=== PATIENT | male | born 1975 | race Caucasian/White ===

== ENCOUNTER 2016-08-03 19:33 | Emergency (ER) | payer OTHER ==
--- NOTE | 2016-08-03 19:47 | ER Document Report ---
ED Medical Screen (RME) - General Chief Complaint: Back Pain Stated Complaint: FLANK PAIN Mode of Arrival: Ambulatory Information source: Patient Notes: Patient presents to the emergency department with left posterior chest pain. Reports it hurts with expiration. Reports it feels the same as when he had PE in November. Reports he was on [id number]- for 6 months and recently taken off 2 months ago. Denies trauma denies smoker. No recent long trips. I have greeted and performed a rapid initial assessment of this patient. A comprehensive ED assessment and evaluation of the patient, analysis of test results and completion of the medical decision making process will be conducted by additional ED providers. TRAVEL OUTSIDE OF THE [place] IN LAST 30 DAYS: No - Related Data Allergies/Adverse Reactions: No Known Allergies Allergy (Verified 08/25/14 09:43) Past Medical History - Past Medical History Cardiac Medical History: Reports: Hx Hypertension Denies: Hx Coronary Artery Disease, Hx Heart Attack Pulmonary Medical History: Denies: Hx Asthma, Hx Bronchitis, Hx COPD, Hx Pneumonia Neurological Medical History: Denies: Hx Cerebrovascular Accident, Hx Seizures Musculoskeltal Medical History: Reports Hx Arthritis - hips, lower back Past Surgical History: Reports: Hx Testicular Surgery - vasectomy - Immunizations Hx Diphtheria, Pertussis, Tetanus Vaccination: Yes
[2016-08-03 20:02] LABS: ABSOLUTE BASOPHILS # (AUTO) 0.1 10^3/uL (0.0-0.2); ABSOLUTE EOSINOPHILS # (AUTO) 0.3 10^3/uL (0.0-0.6); ABSOLUTE LYMPHOCYTES (AUTO) 3.8 10^3/uL (0.5-4.7); ABSOLUTE MONOCYTES (AUTO) 0.7 10^3/uL (0.1-1.4); ABSOLUTE NEUT (AUTO) 6.9 10^3/uL (1.7-8.2); BASOPHILS % (AUTO) 0.5 % (0-2); EOSINOPHILS % (AUTO) 2.8 % (0-6); HEMATOCRIT 49.2 % (37.9-51.0); HEMOGLOBIN 16.7 g/dL (13.5-17.0); HGB HCT DIFFERENCE 0.9; MEAN CORPUSCULAR HEMOGLOBIN 29.1 pg (27.0-33.4); MEAN CORPUSCULAR HGB CONC 33.9 g/dL (32.0-36.0); MEAN CORPUSCULAR VOLUME 86 fl (80-97); MONOCYTES % (AUTO) 5.6 % (3-13); RED BLOOD COUNT 5.73 10^6/uL (4.35-5.55); RED CELL DISTRIBUTION WIDTH 13.3 % (11.5-14.0); SEGMENTED NEUTROPHILS % (AUTO) 59.1 % (42-78); WHITE BLOOD COUNT 11.7 10^3/uL (4.0-10.5)
[2016-08-03 20:08] LABS: PROTHROMBIN TIME 12.2 SEC (11.4-15.4)
[2016-08-03 20:11] LABS: D-DIMER 0.36 ug/mL (0.00-0.50)
[2016-08-03 20:22] LABS: ALANINE AMINOTRANSFERASE 44 U/L (21-72); ALBUMIN 4.7 g/dL (3.5-5.0); ALKALINE PHOSPHATASE 83 U/L (38-126); ANION GAP 12 (5-19); ASPARTATE AMINO TRANSFERASE 42 U/L (17-59); BILIRUBIN,DIRECT 0.2 mg/dL (0.0-0.4); BILIRUBIN,TOTAL 0.4 mg/dL (0.2-1.3); BLOOD UREA NITROGEN 15 mg/dL (7-20); CALCIUM 10.4 mg/dL (8.4-10.2); CARBON DIOXIDE 29 mmol/L (22-30); CHLORIDE 102 mmol/L (98-107); CREATININE RESULT 1.05 mg/dL (0.52-1.25); GLUCOSE 109 mg/dL (75-110); POTASSIUM 4.3 mmol/L (3.6-5.0); SODIUM 143.3 mmol/L (137-145); TOTAL PROTEIN 7.9 g/dL (6.3-8.2)
[2016-08-03 23:26] LABS: APPEARANCE,URINE CLEAR; BILIRUBIN,URINE NEGATIVE (NEGATIVE); GLUCOSE, URINE NEGATIVE (NEGATIVE); KETONES,URINE NEGATIVE (NEGATIVE); LEUKOCYTE ESTERASE,URINE NEGATIVE (NEGATIVE); NITRITE,URINE NEGATIVE (NEGATIVE); PROTEIN,URINE NEGATIVE (NEGATIVE); URINE SPECIFIC GRAVITY 1.049; UROBILINOGEN,URINE NEGATIVE mg/dL (<2.0)
[2016-08-03] MEDS ORDERED: HYDROCODONE/ACETAMINOPHEN 5-325 MG 6 TAB/DSPK PO PRN (23:45)
--- NOTE | 2016-08-03 23:46 | ER Document Report ---
ED General - General Chief Complaint: Back Pain Stated Complaint: FLANK PAIN Time seen by provider: 23:45 Mode of Arrival: Ambulatory Information source: Patient TRAVEL OUTSIDE OF THE [place] IN LAST 30 DAYS: No - HPI Patient complains to provider of: left thoracic back pain Onset: This morning Onset/Duration: Gradual Quality of pain: Achy Severity: Moderate Pain Level: 3 Associated symptoms: None Exacerbated by: Deep breathing Relieved by: Denies Similar symptoms previously: Yes Recently seen / treated by doctor: No Notes: Patient is a 41-year-old male who presents to the emergency room complaining of left posterior mid thoracic back pain that started earlier today, he reports symptoms are worse when he takes a deep breath and reminiscent of when he had a pulmonary embolism in the past, he was on Zarelto for approximately 6 months, and taken off of it 2 months ago, he is unsure what caused his pulmonary embolism in the past, he denies any injury, no heavy lifting, no recent long travel, no calf pain or tenderness, no shortness of breath and no chest pain - Related Data Allergies/Adverse Reactions: No Known Allergies Allergy (Verified 08/25/14 09:43) Past Medical History - General Information source: Patient - Social History Smoking Status: Never Smoker Chew tobacco use (# tins/day): No Frequency of alcohol use: None Drug Abuse: None Family History: Reviewed & Not Pertinent Patient has suicidal ideation: No Patient has homicidal ideation: No - Past Medical History Cardiac Medical History: Reports: Hx Hypertension Denies: Hx Coronary Artery Disease, Hx Heart Attack Pulmonary Medical History: Denies: Hx Asthma, Hx Bronchitis, Hx COPD, Hx Pneumonia Neurological Medical History: Denies: Hx Cerebrovascular Accident, Hx Seizures Renal/ Medical History: Denies: Hx Peritoneal Dialysis Musculoskeltal Medical History: Reports Hx Arthritis - hips, lower back Past Surgical History: Reports: Hx Testicular Surgery - vasectomy - Immunizations Hx Diphtheria, Pertussis, Tetanus Vaccination: Yes Review of Systems - Review of Systems Constitutional: No symptoms reported EENT: No symptoms reported Cardiovascular: No symptoms reported Respiratory: See HPI Gastrointestinal: No symptoms reported Genitourinary: No symptoms reported Male Genitourinary: No symptoms reported Musculoskeletal: See HPI Skin: See HPI Hematologic/Lymphatic: No symptoms reported Neurological/Psychological: No symptoms reported -: Yes All other systems reviewed and negative Physical Exam - Vital signs Vitals: Temp Pulse Resp BP Pulse Ox 98.5 F 105 H 18 146/92 H 95 08/03/16 19:41 08/03/16 19:41 08/03/16 19:41 08/03/16 19:41 08/03/16 19:41 Interpretation: Normal - General General appearance: Appears well, Alert In distress: None - HEENT Head: Normocephalic, Atraumatic Eyes: Normal Conjunctiva: Normal Extraocular movements intact: Yes Eyelashes: Normal Pupils: PERRL - Respiratory Respiratory status: No respiratory distress Chest status: Nontender Breath sounds: Normal Chest palpation: Normal - Cardiovascular Rhythm: Regular Heart sounds: Normal auscultation Murmur: No - Abdominal Inspection: Normal Distension: No distension Bowel sounds: Normal Tenderness: Nontender Organomegaly: No organomegaly - Back Back: Normal, Nontender - Extremities General upper extremity: Normal inspection, Nontender, Normal color, Normal ROM , Normal temperature General lower extremity: Normal inspection, Nontender, Normal color, Normal ROM , Normal temperature, Normal weight bearing. No: Leo's sign - Neurological Neuro grossly intact: Yes Cognition: Normal Orientation: AAOx4 [place] Coma Scale Eye Opening: Spontaneous Pearl Coma Scale Verbal: Oriented [place] Coma Scale Motor: Obeys Commands [place] Coma Scale Total: 15 Speech: Normal Motor strength normal: LUE, RUE, LLE, RLE Sensory: Normal - Psychological Associated symptoms: Normal affect, Normal mood - Skin Skin Temperature: Warm Skin Moisture: Dry Skin Color: Normal Course - Re-evaluation Re-evalutation: 08/04/16 03:35 Lab and imaging findings discussed with patient at bedside which are unremarkable, CTA shows no evidence of a PE, patient was provided with a take- home pack of pain medication and advised to follow-up with his primary care provider in one to 2 days or return if symptoms worsen, patient acknowledges understanding and agreement with this plan - Vital Signs Vital signs: Temp Pulse Resp BP Pulse Ox 97.8 F 70 16 115/74 96 08/04/16 00:00 08/04/16 00:00 08/04/16 00:00 08/04/16 00:00 08/04/16 00:00 - Laboratory Result Diagrams: 08/03/16 19:45 08/03/16 19:45 Laboratory results interpreted by me: 08/03/16 08/03/16 19:45 19:45 WBC 11.7 H RBC 5.73 H Calcium 10.4 H - Diagnostic Test Radiology reviewed: Image reviewed, Reports reviewed - EKG Interpretation by Me EKG shows normal: Sinus rhythm Rate: Normal Rhythm: NSR Discharge - Discharge Clinical Impression: Rib pain Condition: Stable Disposition: HOME, SELF-CARE Instructions: Anti-Inflammatory Medication ([facility]), Oral Narcotic Medication ([facility] ), Muscle Strain ([facility]) Additional Instructions: Follow up with your primary care provider in one to 2 days. Return to the emergency room immediately if symptoms worsen or any additional concerns. Referrals: ALMAZ LOVELL MD [Primary Care Provider] - Follow up as needed
[2016-08-04 00:02] VITALS: BP 115/74
--- NOTE | 2016-08-04 08:52 | EKG REPORT ---
SEVERITY:- ABNORMAL ECG - SINUS RHYTHM NONSPECIFIC T ABNORMALITIES, INFERIOR LEADS : Confirmed by: Miquel Spence MD 04-Aug-2016 08:51:34
== END 2016-08-04 | disposition home or self-care (01) ==
LOC: ER 19:33
DX: R07.81 Pleurodynia (principal); M54.9 Dorsalgia, unspecified; I10 Essential (primary) hypertension; Z98.52 Vasectomy status
CPT/HCPCS: 36415; 71275; 80053; 81001; 85025; 85379; 85610; 93005; 93010; 99284

== ENCOUNTER 2016-09-23 08:15 | Emergency (ER) | payer OTHER ==
--- NOTE | 2016-09-23 08:35 | EKG REPORT ---
SEVERITY:- BORDERLINE ECG - SINUS RHYTHM BORDERLINE T ABNORMALITIES, INFERIOR LEADS : Confirmed by: Sunny Tripp 23-Sep-2016 08:34:59
--- NOTE | 2016-09-23 08:54 | ER Document Report ---
ED Cardiac - General Mode of Arrival: Ambulatory Information source: Patient TRAVEL OUTSIDE OF THE [place] IN LAST 30 DAYS: No - HPI Patient complains to provider of: Chest pain Associated symptoms: Other - See above - General Chief Complaint: Chest Pain Stated Complaint: CHEST PAIN Time Seen by Provider: 09/23/16 08:35 Notes: Patient is a 41-year-old male who presents to the emergency department complaining of left sided chest pain onset 2 days ago. Patient reports pain is very similar to a blood clot had in his right lung last year. Patient reports the pain is exacerbated by breathing and not by movement and that it radiates into his left shoulder. Patient was here last month with similar complaints and was sent home and told it was muscle related. Patient did have a workup and was tested for blood clotting disorders told he had none. Patient has not taken any Tylenol or Motrin for today's pain. Patient denies cough, fever, and chills. (STEPHANIE HELTON) - Related Data Allergies/Adverse Reactions: No Known Allergies Allergy (Verified 09/23/16 08:18) Past Medical History - General Information source: Patient - Social History Smoking Status: Unknown if Ever Smoked Family History: Reviewed & Not Pertinent Patient has suicidal ideation: No Patient has homicidal ideation: No - Past Medical History Cardiac Medical History: Reports: Hx Hypertension Musculoskeltal Medical History: Reports Hx Arthritis - hips, lower back Past Surgical History: Reports: Hx Testicular Surgery - vasectomy - Immunizations Hx Diphtheria, Pertussis, Tetanus Vaccination: Yes Review of Systems - Review of Systems Constitutional: denies: Chills, Fever EENT: No symptoms reported Cardiovascular: See HPI, Chest pain Respiratory: denies: Cough Gastrointestinal: No symptoms reported Genitourinary: No symptoms reported Male Genitourinary: No symptoms reported Musculoskeletal: No symptoms reported Skin: No symptoms reported Hematologic/Lymphatic: No symptoms reported Neurological/Psychological: No symptoms reported -: Yes All other systems reviewed and negative Physical Exam - Vital signs Interpretation: Normal - General General appearance: Appears well, Alert - HEENT Head: Normocephalic, Atraumatic - Respiratory Respiratory status: No respiratory distress Chest status: Nontender Breath sounds: Normal Chest palpation: Normal - Cardiovascular Rhythm: Regular Heart sounds: Normal auscultation Murmur: No - Abdominal Inspection: Normal Distension: No distension Bowel sounds: Normal Tenderness: Nontender Organomegaly: No organomegaly - Extremities General upper extremity: Normal inspection General lower extremity: Normal inspection - Neurological Neuro grossly intact: Yes Cognition: Normal Orientation: AAOx4 [place] Coma Scale Eye Opening: Spontaneous Pearl Coma Scale Verbal: Oriented [place] Coma Scale Motor: Obeys Commands [place] Coma Scale Total: 15 Speech: Normal - Psychological Associated symptoms: Normal affect, Normal mood - Skin Skin Temperature: Warm Skin Moisture: Dry Skin Color: Normal Course - Re-evaluation Re-evalutation: 09/23/16 10:39 Patient presents emergency, chief plain pleuritic chest pain for the past 2-3 days he had a history of a pulmonary embolism one or 2 years ago was on Cymbalta for short period time followed up with hematology and they have no idea why he had it today did all outpatient testing to see if he had blood clotting disorder which she did not. He says it hurts when he takes a deep breath. He was here 325 with the same complaint PE study at that time was negative. He denies any known injury or muscular skeletal injury no fevers chills or cough well-appearing nontoxic no acute distress and is not tachypnea or tachycardic. Chest x-ray showing pneumonia. Going to go ahead and treat him with Augmentin. Close primary care physician d-dimer is negative and discussed reasons for ED return sooner (ZULY HAWLEY) - Vital Signs Vital signs: Temp Pulse Resp BP Pulse Ox 97.8 F 68 18 123/77 95 09/23/16 10:51 09/23/16 10:51 09/23/16 10:51 09/23/16 10:51 09/23/16 10:51 Discharge - Discharge Clinical Impression: acute pneumonia, pleuritic chest pain Condition: Stable Disposition: HOME, SELF-CARE Additional Instructions: Pneumonia Your examination indicates that you have pneumonia. This is an infection of the lung tissue, usually caused by bacteria or a virus. Symptoms include cough, fever, shaking chills, chest pain, shortness of breath, and coughing up bloody sputum. Treatment for bacterial pneumonia includes rest, antibiotics for 10 to 14 days, increasing your clear liquid intake, a cool mist humidifier at your bedside, and fever medication. Often, a repeat chest X-ray is performed in a few weeks--even if you feel better--to ascertain whether the infection has completely resolved and no underlying lung problem is present. You should call the physician if you develop persistent vomiting, high fever that does not respond to fever medication, increasing shortness of breath , confusion, or lethargy. Also, failure to improve within two to three days is an indication for re-examination. Chest Pain of Unclear Cause The exact cause of your chest pain isn't clear. Fortunately, there is no evidence of a dangerous medical condition. Further testing may be required to find the source of the pain. Most often, we find that this pain is coming from the chest wall -- the muscles or rib joints in the chest. But chest pain can come from the lung and lung lining, the esophagus, the heart valves or heart lining, and even the stomach or gallbladder. Rest. Eat lightly until the pain is gone. We may prescribe medicine for pain and inflammation. You should call the physician immediately if the pain radiates to the shoulder, jaw or arms; if you start to run a fever or develop a cough; or if you develop shortness of breath, or other new or alarming symptoms. Prescriptions: Amox Tr/Potassium Clavulanate [Augmentin 875-125 Tablet] 1 tab PO BID 10 Days Referrals: ALMAZ LOVELL MD [Primary Care Provider] - Follow up as needed Scribe Attestation: 09/23/16 10:39 I personally performed the services described in the documentation reviewed the documentation recorded by my scribe in my presence and it accurately and completely records my words and actions (ZULY HAWLEY) Scribe Documentation - Scribe Written by Denia:: denia Abernathy, 09/23/16, 1001 acting as scribe for :: Erik
[2016-09-23] MEDS ORDERED: AMOXICILLIN TR/POT CLAVULANATE 500-125 MG TAB PO ONE (10:38)
[2016-09-23 10:53] VITALS: BP 123/77
== END 2016-09-23 11:00 | disposition home or self-care (01) ==
LOC: ER 08:15
DX: J18.9 Pneumonia, unspecified organism (principal); R07.81 Pleurodynia; I10 Essential (primary) hypertension; Z98.52 Vasectomy status
CPT/HCPCS: 36415; 71020; 83690; 85379; 93005; 93010; 99285

== ENCOUNTER → 2016-10-29 | Outpatient (CLI) | payer OTHER ==
--- NOTE | 2016-10-29 12:09 | RADIOLOGY REPORT (SQ) ---
EXAM DESCRIPTION: CHEST PA/LATERAL COMPLETED DATE/TIME: 10/29/2016 11:00 am REASON FOR STUDY: CHEST PAIN ON BREATHING COMPARISON: 09/23/2016 EXAM PARAMETERS: NUMBER OF VIEWS: two views TECHNIQUE: Digital Frontal and Lateral radiographic views of the chest acquired. RADIATION DOSE: NA LIMITATIONS: none FINDINGS: LUNGS AND PLEURA: No opacities, masses or pneumothorax. No pleural effusion. MEDIASTINUM AND HILAR STRUCTURES: No masses or contour abnormalities. HEART AND VASCULAR STRUCTURES: Heart normal size. No evidence for failure. BONES: No acute findings. HARDWARE: None in the chest. OTHER: No other significant finding. IMPRESSION: NO SIGNIFICANT RADIOGRAPHIC FINDING IN THE CHEST. TECHNICAL DOCUMENTATION: JOB ID: [id number] [employer]- All Rights Reserved
== END ==
LOC: OD 10:21
PROVIDERS: ATTEND Physician Assistant
DX: R07.1 Chest pain on breathing (principal)
CPT/HCPCS: 36415; 71020; 85379

== ENCOUNTER → 2016-11-07 | Outpatient (CLI) | payer OTHER ==
--- NOTE | 2016-11-07 19:17 | XCELERA REPORT ---
[address] [address] Transthoracic Echocardiogram Report Name: JUAN C LEVY Age: 41 yrs Gender: Male : 1975 Patient Status: Outpatient Patient Location: Study Date: 11/07/2016 08:02 AM Height: 73 in Weight: 210 lb BSA: 2.2 m2 Procedure: A complete two-dimensional transthoracic echocardiogram was performed (2D, M-mode, spectral and color flow Doppler). The study was technically difficult with many images being suboptimal in quality. Reason For Study: CP Ordering Physician: SURESH KIRK Performed By: Kady Yadav Interpretation Summary Left ventricular systolic function is low normal. Doppler measurements suggest pseudonormalized left ventricular relaxation, which is associated with grade II/IV or mild to moderate diastolic dysfunction There is mild concentric left ventricular hypertrophy. The left ventricle is grossly normal size. Not all wall segments were well visualized. Wall motion cannot be accurately commented on, but no definite regional wall motion abnormalities noted. The right ventricular systolic function is normal. The left atrial size is normal. The right atrium is normal in size There is a trace amount of mitral regurgitation There is no mitral valve stenosis. No aortic regurgitation is present. There is no aortic valve stenosis There is a trace or physiologic amount of tricuspid regurgitation Tricuspid regurgitation jet envelope not well defined to measure RV systolic pressure accurately. The aortic root is not well visualized. The inferior vena cava appeared normal and decreased > 50% with respiration (RAP 5-10 mmHg) There is no pericardial effusion. MMode/2D Measurements \T\ Calculations RVDd: 3.8 cm LVIDd: 4.4 cm FS: 40.3 % Ao root diam: 3.2 cm IVSd: 1.2 cm LVIDs: 2.7 cm EDV(Teich): 89.6 ml LVPWd: 1.0 cm ESV(Teich): 25.8 ml Ao root area: 7.8 cm2 EF(Teich): 71.2 % LVOT diam: 2.6 cm LVOT area: 5.2 cm2 Doppler Measurements \T\ Calculations Ao V2 max: LV V1 max PG: PA V2 max: TR max kenia: 97.9 cm/sec 2.1 mmHg 61.1 cm/sec 219.4 cm/sec Ao max PG: LV V1 max: PA max PG: TR max P.3 mmHg 3.8 mmHg 72.0 cm/sec 1.5 mmHg SONIA(V,D): 3.8 cm2 Left Ventricle The left ventricle is grossly normal size. There is mild concentric left ventricular hypertrophy. Left ventricular systolic function is low normal. Doppler measurements suggest pseudonormalized left ventricular relaxation, which is associated with grade II/IV or mild to moderate diastolic dysfunction. Wall motion cannot be accurately commented on, but no definite regional wall motion abnormalities noted. Not all wall segments were well visualized. Right Ventricle The right ventricle is grossly normal size. There is normal right ventricular wall thickness. The right ventricular systolic function is normal. Atria The right atrium is normal in size. The left atrial size is normal. Interarterial septum not well visualized and not well dopplered. Cannot comment on ASD/PFO presence. Mitral Valve The mitral valve is grossly normal. There is no mitral valve stenosis. There is a trace amount of mitral regurgitation. Aortic Valve The aortic valve is grossly normal. There is no aortic valve stenosis. No aortic regurgitation is present. Tricuspid Valve The tricuspid valve is not well visualized, but is grossly normal. There is no tricuspid stenosis. There is a trace or physiologic amount of tricuspid regurgitation. Tricuspid regurgitation jet envelope not well defined to measure RV systolic pressure accurately. Pulmonic Valve The pulmonic valve is not well visualized. Great Vessels The aortic root is not well visualized. The inferior vena cava appeared normal and decreased > 50% with respiration (RAP 5-10 mmHg). Effusions There is no pericardial effusion. : SURESH KIRK > Sunny Tripp
== END ==
LOC: SP 07:27
PROVIDERS: ATTEND Physician Assistant
DX: R07.9 Chest pain, unspecified (principal)
CPT/HCPCS: 93306

== ENCOUNTER 2016-11-20 10:45 | Emergency (ER) | payer OTHER ==
[2016-11-20 10:52] VITALS: BP 129/86
[2016-11-20] MEDS ORDERED: RIVAROXABAN 15 MG TABLET PO ONE (12:12)
--- NOTE | 2016-11-20 12:12 | ER Document Report ---
ED Medical Screen (RME) - General Chief Complaint: Abnormal Lab Results Stated Complaint: SIDE PAIN Time Seen by Provider: 11/20/16 11:56 Mode of Arrival: Ambulatory Information source: Patient, [facility] Records TRAVEL OUTSIDE OF THE [place] IN LAST 30 DAYS: No - HPI Onset: Other - days Quality of pain: Dull Severity: Mild Associated Symptoms: None Exacerbated by: Denies Relieved by: Denies Notes: 11/20/16 12:08 Patient is a healthy 41-year-old male who states he was diagnosed with a pulmonary embolus approximately 1 year ago of unknown etiology. Patient states he did see hematology at that time and no specific etiology could be identified. Patient believes it was due to the fact that he works outdoors as a bilingual account manager and states he did some research on the Internet documenting pulmonary embolus and actually to exert himself heavily outdoors. Patient completed his Xarelto approximately 6 months ago and is doing well. Over the last several weeks patient has been seen by his primary care doctor and this emergency department for episodes of chest pain. Patient did have a CT of his chest done a few weeks ago which was negative also chest x-ray done which was negative. Patient then developed right-sided chest pain and was subsequently sent to the emergency department by his primary care provider today for a CT of his chest again. He was read out by the radiologist as minimal right lower lobe pulmonary embolus the patient was referred to the emergency department for further management and evaluation. Patient denies any shortness of breath. No fevers or chills. Patient is a non-smoker and otherwise has no other PE risk factors. - Related Data Allergies/Adverse Reactions: No Known Allergies Allergy (Verified 11/20/16 10:49) Past Medical History - General Information source: Patient, [facility] Records - Social History Chew tobacco use (# tins/day): No Frequency of alcohol use: None Drug Abuse: None - Past Medical History Cardiac Medical History: Reports: Hx Hypertension, Hx Pulmonary Embolism Denies: Hx Coronary Artery Disease, Hx Heart Attack Pulmonary Medical History: Denies: Hx Asthma, Hx Bronchitis, Hx COPD, Hx Pneumonia Neurological Medical History: Denies: Hx Cerebrovascular Accident, Hx Seizures Renal/ Medical History: Denies: Hx Peritoneal Dialysis Musculoskeltal Medical History: Reports Hx Arthritis - hips, lower back Past Surgical History: Reports: Hx Testicular Surgery - vasectomy - Immunizations Hx Diphtheria, Pertussis, Tetanus Vaccination: Yes Review of Systems - Review of Systems Cardiovascular: Chest pain -: Yes All other systems reviewed and negative Physical Exam - Vital signs Vitals: Temp Pulse Resp BP Pulse Ox 98.1 F 88 20 129/86 H 94 11/20/16 10:50 11/20/16 10:50 11/20/16 10:50 11/20/16 10:50 11/20/16 10:50 Interpretation: Normal - General General appearance: Appears well, Alert - HEENT Head: Normocephalic, Atraumatic Eyes: Normal Pupils: PERRL - Respiratory Respiratory status: No respiratory distress Chest status: Nontender Breath sounds: Normal Chest palpation: Normal - Cardiovascular Rhythm: Regular Heart sounds: Normal auscultation Murmur: No - Abdominal Inspection: Normal Distension: No distension Bowel sounds: Normal Tenderness: Nontender Organomegaly: No organomegaly - Extremities General upper extremity: Normal inspection, Nontender, Normal color, Normal ROM , Normal temperature General lower extremity: Normal inspection, Nontender, Normal color, Normal ROM , Normal temperature, Normal weight bearing. No: Leo's sign - Neurological Neuro grossly intact: Yes Cognition: Normal Orientation: AAOx4 Pearl Coma Scale Eye Opening: Spontaneous Pearl Coma Scale Verbal: Oriented Pearl Coma Scale Motor: Obeys Commands Pearl Coma Scale Total: 15 Speech: Normal Motor strength normal: LUE, RUE, LLE, RLE Sensory: Normal Course - Re-evaluation Re-evalutation: 11/20/16 12:06 According to the Pulmonary Embolism Severity Index (PESI), pt scores in the very low risk group (51 points). Will start on outpatient Xarelto treatment and patient will follow up with his PMD. Pt is not short of breath and is otherwise comfortable. He is scheduled for treadmill PFT testing. 11/20/16 12:11 11/20/16 12:13 - Vital Signs Vital signs: Temp Pulse Resp BP Pulse Ox 98.1 F 88 20 129/86 H 94 11/20/16 10:50 11/20/16 10:50 11/20/16 10:50 11/20/16 10:50 11/20/16 10:50 - Diagnostic Test Radiology reviewed: Reports reviewed Radiology results interpreted by me: 11/20/16 12:10 per radiology, mild right pulmonary embolus Doctor's Discharge - Discharge Clinical Impression: Pulmonary embolus Condition: Good Disposition: HOME, SELF-CARE Instructions: Chest Wall Pain ([facility]) Additional Instructions: Your CTA chest demonstrates a very small right lower lobe pulmonary embolus. You have been given a starting dose of Xarelto in the emergency department. You have been given a prescription for a Xarelto starter pack. You will need to follow-up with your primary care provider for further management. Return to the emergency department if worse or for any other problems. Prescriptions: Rivaroxaban [Xarelto] 1 each PO ASDIR #1 tab.ds.pk
== END 2016-11-20 12:25 | disposition home or self-care (01) ==
LOC: ER 10:45
DX: I26.99 Other pulmonary embolism without acute cor pulmonale (principal); I10 Essential (primary) hypertension; R07.9 Chest pain, unspecified
CPT/HCPCS: 71275; 99283

== ENCOUNTER → 2016-11-20 | Outpatient (CLI) | payer OTHER ==
--- NOTE | 2016-11-20 09:43 | RADIOLOGY REPORT (SQ) ---
EXAM DESCRIPTION: CTA CHEST COMPLETED DATE/TIME: 11/20/2016 9:05 am REASON FOR STUDY: CHEST PAIN R07.9 CHEST PAIN, UNSPECIFIED COMPARISON: None. TECHNIQUE: CT scan of the chest performed using helical scanning technique with dynamic intravenous contrast injection. Images reviewed with lung, soft tissue and bone windows. Reconstructed coronal and sagittal MPR images reviewed. Additional 3 dimensional post-processing performed to develop Maximal Intensity Projection images (NM P). All images stored on PACS. All CT scanners at this facility use dose modulation, iterative reconstruction, and/or weight based d osing when appropriate to reduce radiation dose to as low as reasonably achievable (ALARA). [facility]: Dose Right [facility]: CareDose [facility]: Dose Right [facility]: Teradose 4D [facility]: [email or web address] CONTRAST TYPE AND DOSE: contrast/concentration: Isovue 370.00 mg/ml; Total Contrast Delivered: 73.0 ml; Total Saline Delivered: 110.1 ml RENAL FUNCTION: None required. The patient is less than 50 years old. RADIATION DOSE: Up-to-date CT equipment and radiation dose reduction techniques were employed. CTDIv ol: 15.0 - 15.5 mGy. DLP: 583 mGy-cm. . LIMITATIONS: None. FINDINGS: LUNGS AND PLEURA: Mild dependent subsegmental atelectasis in the lower lobes. 1.7 cm slig htly nodular appearing area of density abutting the right posterior pleura. Lungs otherwise clear. No pleural effusion or calcification. AORTA AND GREAT VESSELS: Ectatic ascending aorta, 3.9 cm maximally. Due to phase of contrast, the ao rta itself is not well enhanced and therefore comment on dissection and great vessel patency is not p ossible. HEART: No pericardial effusion. PULMONARY ARTERIES: Main pulmonary arteries are clear. Minimal filling defects in peripheral right l ower lobe branches consistent with pulmonary embolus. HILAR AND MEDIASTINAL STRUCTURES: No identified masses or abnormal nodes. HARDWARE: None in the chest. UPPER ABDOMEN: No significant findings. Limited exam. THYROID AND OTHER SOFT TISSUES: No masses. No adenopathy. BONES: No acute or significant finding. 3D MIPS: Confirm above findings. OTHER: No other significant finding. IMPRESSION: 1. Minimal right lower lobe pulmonary embolus. Mild right lower lobe focal pleural bas ed opacity may represent a small area of infarct or atelectasis. Pertinent findings on the imaging study reported to SURESH LENZ at09:36 on 11/20/2016. TECHNICAL DOCUMENTATION: JOB ID: [id number] Quality ID # [id number]: Final reports with documentation of one or more dose reduction techniques (e.g., Au tomated exposure control, adjustment of the mA and/or kV according to patient size, use of iterative reconstruction technique) 2010 [employer]- All Rights Reserved
== END ==
LOC: RAD 08:37
PROVIDERS: ATTEND Physician Assistant
DX: R07.9 Chest pain, unspecified (principal); I26.99 Other pulmonary embolism without acute cor pulmonale
CPT/HCPCS: 71275

== ENCOUNTER → 2017-03-31 | Outpatient (CLI) | payer OTHER ==
--- NOTE | 2017-04-01 11:16 | RADIOLOGY REPORT (SQ) ---
EXAM DESCRIPTION: U/S SCROTUM W/O DOPPLER COMPLETED DATE/TIME: 03/31/2017 6:24 pm REASON FOR STUDY: LEFT TESTICULAR PAIN N50.812 LEFT TESTICULAR PAIN COMPARISON: None. TECHNIQUE: Static and realtime napier scale imaging of the scrotum and testes. Selected color Doppler and spectral images recorded to document blood flow. LIMITATIONS: None. FINDINGS: RIGHT: TESTICLE: Normal size, 4.4 x 3.3 x 2.2 cm in size. Normal echotexture. Normal blood flow. No mass. EPIDIDYMIS: Normal size. There is ectasia of tubules in the right epididymal head, with a benign 4 m m epididymal cyst. HYDROCELE OR VARICOCELE: No. HERNIA OR EXTRA-TESTICULAR MASS: No. OTHER: No other significant finding. LEFT: TESTICLE: Normal size, 4.4 x 3.1 x 2.4 cm in size. Normal echotexture. Normal blood flow. No mass. EPIDIDYMIS: Epididymis is diffusely mildly enlarged. There is diffuse tubular ectasia in the right e pididymis, most pronounced at the epididymal tail. HYDROCELE OR VARICOCELE: There is a large left varicocele, which becomes more prominent on Valsalva HERNIA OR EXTRA-TESTICULAR MASS: No. OTHER: No other significant finding. IMPRESSION: No ultrasound evidence of testicular torsion Bilateral epididymal tubular ectasia, seen post vasectomy Large left varicocele COMMENT: [id number] TECHNICAL DOCUMENTATION: JOB ID: [id number] [employer]- All Rights Reserved
== END ==
LOC: RAD 17:02
PROVIDERS: ATTEND Physician Assistant
DX: N50.812 Left testicular pain (principal)
CPT/HCPCS: 76870

== ENCOUNTER 2018-08-17 05:57 | Emergency (ER) | payer OTHER ==
[2018-08-17] MEDS ORDERED: ONDANSETRON HCL INJ/PF 4 MG/2 ML SDV IV ONE (06:45)
[2018-08-17] MEDS ORDERED: MORPHINE SULFATE 10 MG/ML INJ IV ONE (06:45)
[2018-08-17] MEDS ORDERED: NORMAL SALINE 1000 ML 1,000 ML IV ONE (06:45)
--- NOTE | 2018-08-17 07:21 | RADIOLOGY REPORT (SQ) ---
Acute abdominal series on 08/17/2018 at 7:01 AM CLINICAL INDICATION: Lower abdominal pain, fever COMPARISON: Chest x-ray from 10/29/2016 FINDINGS: CHEST: The lungs are clear. Cardiac, hilar and mediastinal contours are within normal limits. Pulmonary vascularity is within normal limits. No bony abnormality is noted. ABDOMEN: There is no free air. Degenerative changes and mild levoscoliosis is noted in the lower lumbar spine. Bowel gas pattern is unremarkable. Calcifications in the right pelvis is consistent with phlebolith. No other abnormal calcification or mass effect is noted. IMPRESSION: 1. No acute cardiopulmonary disease. 2. Nonspecific abdomen.
[2018-08-17 07:32] LABS: ABSOLUTE BASOPHILS # (AUTO) 0.1 10^3/uL (0.0-0.2); ABSOLUTE EOSINOPHILS # (AUTO) 0.2 10^3/uL (0.0-0.6); ABSOLUTE LYMPHOCYTES (AUTO) 1.6 10^3/uL (0.5-4.7); ABSOLUTE MONOCYTES (AUTO) 1.1 10^3/uL (0.1-1.4); ABSOLUTE NEUT (AUTO) 8.9 10^3/uL (1.7-8.2); BASOPHILS % (AUTO) 0.4 % (0-2); EOSINOPHILS % (AUTO) 1.6 % (0-6); HEMATOCRIT 49.4 % (37.9-51.0); HEMOGLOBIN 17.2 g/dL (13.5-17.0); LYMPHOCYTES % (AUTO) 13.8 % (13-45); MEAN CORPUSCULAR HEMOGLOBIN 30.7 pg (27.0-33.4); MEAN CORPUSCULAR HGB CONC 34.7 g/dL (32.0-36.0); MEAN CORPUSCULAR VOLUME 89 fl (80-97); MONOCYTES % (AUTO) 9.1 % (3-13); PLATELET COUNT 249 10^3/uL (150-450); RED BLOOD COUNT 5.59 10^6/uL (4.35-5.55); RED CELL DISTRIBUTION WIDTH 14.3 % (11.5-14.0); SEGMENTED NEUTROPHILS % (AUTO) 75.1 % (42-78); TOTAL CELLS COUNTED % (AUTO) 100 %; WHITE BLOOD COUNT 11.8 10^3/uL (4.0-10.5)
[2018-08-17 07:46] LABS: ALANINE AMINOTRANSFERASE 26 U/L (21-72); ALBUMIN 4.4 g/dL (3.5-5.0); ALKALINE PHOSPHATASE 91 U/L (38-126); ANION GAP 12 (5-19); ASPARTATE AMINO TRANSFERASE 42 U/L (17-59); BILIRUBIN,DIRECT 0.3 mg/dL (0.0-0.4); BILIRUBIN,TOTAL 0.7 mg/dL (0.2-1.3); BLOOD UREA NITROGEN 13 mg/dL (7-20); CALCIUM 10.6 mg/dL (8.4-10.2); CARBON DIOXIDE 24 mmol/L (22-30); CHLORIDE 101 mmol/L (98-107); GLUCOSE 104 mg/dL (75-110); POTASSIUM 4.6 mmol/L (3.6-5.0); SODIUM 136.9 mmol/L (137-145); TOTAL PROTEIN 7.9 g/dL (6.3-8.2)
[2018-08-17 07:54] LABS: APPEARANCE,URINE SLIGHTLY-CLOUDY; BILIRUBIN,URINE NEGATIVE (NEGATIVE); COLOR,URINE YELLOW; GLUCOSE, URINE NEGATIVE (NEGATIVE); KETONES,URINE NEGATIVE (NEGATIVE); LEUKOCYTE ESTERASE,URINE NEGATIVE (NEGATIVE); NITRITE,URINE NEGATIVE (NEGATIVE); PROTEIN,URINE NEGATIVE (NEGATIVE)
[2018-08-17] MEDS ORDERED: CIPROFLOXACIN HCL 750 MG TABLET PO ONE (09:05)
[2018-08-17] MEDS ORDERED: METRONIDAZOLE 500 MG TABLET PO ONE (09:06)
--- NOTE | 2018-08-17 09:17 | RADIOLOGY REPORT (SQ) ---
EXAM DESCRIPTION: CT ABD/PELVIS WITH IV ONLY COMPLETED DATE/TIME: 08/17/2018 8:48 am REASON FOR STUDY: Pelvic pain, history of diverticulosis COMPARISON: CT chest examination dated 11/20/2016. TECHNIQUE: CT scan of the abdomen and pelvis performed using helical scanning technique with dynamic intravenous contrast injection. No oral contrast. Images reviewed with lung, soft tissue, and bone windows. Reconstructed coronal and sagittal MPR images reviewed. Delayed images for evaluation of the urinary system also acquired. All images stored on PACS. All CT scanners at this facility use dose modulation, iterative reconstruction, and/or weight based d osing when appropriate to reduce radiation dose to as low as reasonably achievable (ALARA). [facility]: Dose Right [facility]: CareDose [facility]: Dose Right [facility]: Teradose 4D [facility]: Sonos CONTRAST TYPE AND DOSE: contrast/concentration: Isovue 350.00 mg/ml; Total Contrast Delivered: 100.0 ml; Total Saline Delivered: 70.0 ml RENAL FUNCTION: Creatinine -1.1 BUN =13 RADIATION DOSE: CT Rad equipment meets quality standard of care and radiation dose reduction techniq ues were employed. CTDIvol: 11.3 - 15.8 mGy. DLP: 1676 mGy-cm.. LIMITATIONS: None. FINDINGS: LOWER CHEST: Stable small 4 mm nodule in the periphery of the left lower lobe, axial imag e 10, series 4, stable since the CT-CTA chest examination dated 11/20/2016. Dependent atelectasis or scar in the posterior aspect of the lower lobes bilaterally. LIVER: Fatty liver. Normal size. No masses. No dilated ducts. The hepatic and portal veins are pa tent. SPLEEN: Normal size. No focal lesions. PANCREAS: No masses. No significant calcifications. No adjacent inflammation or peripancreatic fluid collections. Pancreatic duct not dilated. GALLBLADDER: No identified stones by CT criteria. No inflammatory changes to suggest cholecystitis. ADRENAL GLANDS: No significant masses or asymmetry. RIGHT KIDNEY AND URETER: No solid masses. No significant calcifications. No hydronephrosis or hyd roureter. LEFT KIDNEY AND URETER: No solid masses. No significant calcifications. No hydronephrosis or hydr oureter. AORTA AND VESSELS: No aneurysm. No dissection. Renal arteries, SMA, celiac without stenosis. RETROPERITONEUM: No retroperitoneal adenopathy, hemorrhage or masses. BOWEL AND PERITONEAL CAVITY: Colonic diverticulosis. Diffuse thickening of the wall of the sigmoid colon. Mild haziness and linear stranding involving the fat surrounding the sigmoid colon. These fi ndings suggest sigmoid colon diverticulitis. No evidence of abscess or perforation. No free fluid. APPENDIX: Normal. PELVIS: The prostate gland measures 4.6 cm in diameter. No mass. No free fluid. Normal bladder. ABDOMINAL WALL: Bilateral fat containing inguinal and umbilical hernias. BONES: Moderate to moderate severe degenerative disc disease and spondylosis at L3-L4. OTHER: No other significant finding. IMPRESSION: 1. Colonic diverticulosis. The constellation of findings in the region of the sigmoid colon suggest diverticulitis. No evidence of abscess. 2. Bilateral fat containing inguinal and umbilical hernias. 3. Fatty liver. 4. Moderate to moderate severe degenerative disc disease at L3-4. 5. Additional findings as above. COMMENT: 1. The results of this examination were discussed with emergency department provider on 08/18/2018 at 09:06 hours. TECHNICAL DOCUMENTATION: JOB ID: [id number] Quality ID # [id number]: Final reports with documentation of one or more dose reduction techniques (e.g., Au tomated exposure control, adjustment of the mA and/or kV according to patient size, use of iterative reconstruction technique) 2010 [employer]- All Rights Reserved Reading location - IP/workstation name: [email or web address]
[2018-08-17 09:47] VITALS: BP 131/84
--- NOTE | 2018-08-17 13:39 | ER Document Report ---
Entered by JORDAN BILLINGSLEY SCRIBE 08/17/18 0649 Acting as scribe for:MICHAEL CHAVARRIA MD ED General - General Chief Complaint: Abdominal Pain Stated Complaint: ABDOMINAL PAIN Time Seen by Provider: 08/17/18 06:37 Primary Care Provider: SURESH KIRK PA [PHYSICIAN SWING TYPE LATHE OPERATOR] - Follow up as needed Mode of Arrival: Ambulatory Information source: Patient Notes: Patient is a 43 year old male with HTN, diverticulosis and a history of PE pres ents to the emergency department complaining of lower abdominal pain onset 5 days ago. Patient describes the pain as a cramping and "passing a baseball through my intestines". He states he can also feel gas move through his abdomen. He also complains of a fever of 100.3 onset this morning. He denies any nausea of vomiting. Patient states he is on Xarelto but did not take his dose this morning. TRAVEL OUTSIDE OF THE [place] IN LAST 30 DAYS: No - Related Data Allergies/Adverse Reactions: No Known Allergies Allergy (Verified 11/20/16 10:49) Past Medical History - General Information source: Patient - Social History Smoking Status: Never Smoker Cigarette use (# per day): No Chew tobacco use (# tins/day): No Smoking Education Provided: No Frequency of alcohol use: Occasional Family History: Reviewed & Not Pertinent - Past Medical History Cardiac Medical History: Reports: Hx Hypertension, Hx Pulmonary Embolism GI Medical History: Reports: Hx Colonoscopy - 2016, diangosis of diverticulosis Musculoskeletal Medical History: Reports Hx Arthritis - hips, lower back Past Surgical History: Reports: Hx Testicular Surgery - vasectomy - Immunizations Hx Diphtheria, Pertussis, Tetanus Vaccination: Yes Review of Systems - Review of Systems Constitutional: See HPI, Fever EENT: No symptoms reported Cardiovascular: No symptoms reported Respiratory: No symptoms reported Gastrointestinal: See HPI, Abdominal pain Genitourinary: No symptoms reported Male Genitourinary: No symptoms reported Musculoskeletal: No symptoms reported Skin: No symptoms reported Hematologic/Lymphatic: No symptoms reported Neurological/Psychological: No symptoms reported -: Yes All other systems reviewed and negative Physical Exam - Vital signs Vitals: Temp Pulse Resp BP Pulse Ox 98.4 F 110 H 16 141/93 H 97 08/17/18 05:58 08/17/18 05:58 08/17/18 05:58 08/17/18 05:58 08/17/18 05:58 - Notes Notes: GENERAL: Alert, interacts well. No acute distress. HEAD: Normocephalic, atraumatic. EYES: Pupils equal, round, and reactive to light. Extraocular movements intact. ENT: Oral mucosa moist, tongue midline. NECK: Full range of motion. Supple. Trachea midline. LUNGS: Clear to auscultation bilaterally, no wheezes, rales, or rhonchi. No respiratory distress. HEART: Regular rate and rhythm. No murmurs, gallops, or rubs. ABDOMEN: Soft, tender to palpate the lower abdomen, R>L, guarding. Non-dis tended. Bowel sounds present in all 4 quadrants. No rebounding or rigidity. EXTREMITIES: Moves all 4 extremities spontaneously. NEUROLOGICAL: Alert and oriented x3. Normal speech. PSYCH: Normal affect, normal mood. SKIN: Warm, dry, normal turgor. No rashes or lesions noted. Course - Vital Signs Vital signs: Temp Pulse Resp BP Pulse Ox 98.4 F 110 H 16 141/93 H 97 08/17/18 05:58 08/17/18 05:58 08/17/18 05:58 08/17/18 05:58 08/17/18 05:58 - Laboratory Result Diagrams: 08/17/18 06:50 08/17/18 06:50 Laboratory results interpreted by me: 08/17/18 08/17/18 08/17/18 06:50 06:50 07:20 WBC 11.8 H RBC 5.59 H Hgb 17.2 H RDW 14.3 H Absolute Neutrophils 8.9 H Sodium 136.9 L Calcium 10.6 H Urine Urobilinogen 4.0 H - Diagnostic Test Radiology reviewed: Image reviewed, Reports reviewed - AAS--lot of stool throughout the colon. IV contrasted CT scan consistent with sigmoid diverticulitis. Discharge - Discharge Clinical Impression: Diverticulitis of sigmoid colon Condition: Stable Disposition: HOME, SELF-CARE Additional Instructions: Diverticulitis You have been diagnosed as having diverticulitis. This is an inflammation of a small pouch attached to the colon, called a diverticulum. Many of these small pouches can form on the colon as you get older. They are often caused by constipation. When inflamed or infected, symptoms arise -- usually abdominal pain, constipation or diarrhea, fever, and blood in the stool. Severe diverticulitis may require hospitalization. More mild cases are usually treated with antibiotics and clear liquid diet. As you improve, a diet low in residue (one which forms little stool) is prescribed. When you are better, you should eat a high-fiber diet. Stool softeners (like Metamucil) are usually recommended. Call the doctor or go to the hospital if there is increasing pain, vomiting, high fever, large amounts of blood passed, or if bowel movements cease. Take medication as prescribed. Drink plenty of fluids and take a stool softener. Follow-up with your primary care provider this week for recheck. RETURN TO THE EMERGENCY ROOM IF ANY NEW OR WORSENING SYMPTOMS. Prescriptions: Ciprofloxacin HCl [Cipro 750 mg Tablet] 750 mg PO BID #14 tablet Hydrocodone/Acetaminophen [[place] 5-325 mg Tablet] 1 tab PO Q4 PRN #12 tablet PRN Reason: Metronidazole [Flagyl 500 mg Tablet] 500 mg PO QID #28 tablet Referrals: SURESH KIRK PA [PHYSICIAN SWING TYPE LATHE OPERATOR] - Follow up as needed Scribe Attestation: 08/17/18 06:59 I personally performed the services described in the documentation, reviewed and edited the documentation which was dictated to the scribe in my presence, and it accurately records my words and actions. I personally performed the services described in the documentation, reviewed and edited the documentation which was dictated to the scribe in my presence, and it accurately records my words and actions.
== END 2018-08-17 09:48 | disposition home or self-care (01) ==
LOC: ER 05:57
DX: K57.32 Diverticulitis of large intestine without perforation or abscess without bleeding (principal); R10.30 Lower abdominal pain, unspecified; R50.9 Fever, unspecified; I10 Essential (primary) hypertension; Z86.711 Personal history of pulmonary embolism; Z79.01 Long term (current) use of anticoagulants
CPT/HCPCS: 99284; 96374; 96375; 36415; 87040; 85025; 80053; 81001; 74022; 74177; J2270; J2405; J3490; J7030; 96361

== ENCOUNTER → 2018-08-20 | Outpatient (CLI) | payer OTHER ==
[2018-08-20 16:05] LABS: ABSOLUTE BASOPHILS # (AUTO) 0.1 10^3/uL (0.0-0.2); ABSOLUTE EOSINOPHILS # (AUTO) 0.1 10^3/uL (0.0-0.6); ABSOLUTE LYMPHOCYTES (AUTO) 2.1 10^3/uL (0.5-4.7); ABSOLUTE MONOCYTES (AUTO) 1.1 10^3/uL (0.1-1.4); ABSOLUTE NEUT (AUTO) 7.9 10^3/uL (1.7-8.2); BASOPHILS % (AUTO) 0.8 % (0-2); EOSINOPHILS % (AUTO) 0.6 % (0-6); HEMATOCRIT 48.8 % (37.9-51.0); HEMOGLOBIN 16.7 g/dL (13.5-17.0); LYMPHOCYTES % (AUTO) 18.7 % (13-45); MEAN CORPUSCULAR HEMOGLOBIN 30.6 pg (27.0-33.4); MEAN CORPUSCULAR HGB CONC 34.2 g/dL (32.0-36.0); MEAN CORPUSCULAR VOLUME 90 fl (80-97); MONOCYTES % (AUTO) 9.6 % (3-13); PLATELET COUNT 306 10^3/uL (150-450); RED BLOOD COUNT 5.45 10^6/uL (4.35-5.55); SEGMENTED NEUTROPHILS % (AUTO) 70.3 % (42-78); TOTAL CELLS COUNTED % (AUTO) 100 %; WHITE BLOOD COUNT 11.2 10^3/uL (4.0-10.5)
[2018-08-20 16:29] LABS: ALANINE AMINOTRANSFERASE 30 U/L (21-72); ALBUMIN 4.5 g/dL (3.5-5.0); ALKALINE PHOSPHATASE 74 U/L (38-126); ANION GAP 13 (5-19); ASPARTATE AMINO TRANSFERASE 38 U/L (17-59); BILIRUBIN,DIRECT 0.3 mg/dL (0.0-0.4); BILIRUBIN,TOTAL 0.8 mg/dL (0.2-1.3); BLOOD UREA NITROGEN 16 mg/dL (7-20); CALCIUM 10.1 mg/dL (8.4-10.2); CARBON DIOXIDE 25 mmol/L (22-30); CHLORIDE 98 mmol/L (98-107); GLUCOSE 86 mg/dL (75-110); POTASSIUM 4.4 mmol/L (3.6-5.0); SODIUM 136.1 mmol/L (137-145); TOTAL PROTEIN 8.4 g/dL (6.3-8.2)
== END ==
LOC: OD 15:27
PROVIDERS: ATTEND Physician Assistant
DX: K57.92 Diverticulitis of intestine, part unspecified, without perforation or abscess without bleeding (principal)
CPT/HCPCS: 36415; 80053; 85025

== ENCOUNTER → 2018-08-21 | Outpatient (CLI) | payer OTHER ==
--- NOTE | 2018-08-21 14:03 | RADIOLOGY REPORT (SQ) ---
EXAM DESCRIPTION: CT ABD/PELVIS WITH IV ORAL COMPLETED DATE/TIME: 08/21/2018 1:26 pm REASON FOR STUDY: DIVERTICULITIS (K57.92) K57.92 DVTRCLI OF INTEST, PART UNSP, W/O PERF OR ABSCESS W/O COMPARISON: CT abdomen and pelvis dated 08/17/2018. CT chest dated 08/03/2016. TECHNIQUE: CT scan of the abdomen and pelvis performed using helical scanning technique with dynamic intravenous contrast injection. No oral contrast. Images reviewed with lung, soft tissue, and bone windows. Reconstructed coronal and sagittal MPR images reviewed. Delayed images for evaluation of the urinary system also acquired. All images stored on PACS. All CT scanners at this facility use dose modulation, iterative reconstruction, and/or weight based d osing when appropriate to reduce radiation dose to as low as reasonably achievable (ALARA). [facility]: Dose Right [facility]: CareDose [facility]: Dose Right [facility]: Teradose 4D [facility]: [employer] CONTRAST TYPE AND DOSE: contrast/concentration: Isovue 350.00 mg/ml; Total Contrast Delivered: 100.0 ml; Total Saline Delivered: 72.0 ml RENAL FUNCTION: BUN 16 creatinine 1.33. RADIATION DOSE: CT Rad equipment meets quality standard of care and radiation dose reduction techniq ues were employed. CTDIvol: 9.2 - 10.6 mGy. DLP: 1198 mGy-cm.. LIMITATIONS: None. FINDINGS: LOWER CHEST: Stable 4 mm nodule in the left lower lobe, unchanged since CT chest dated 07/11. No infiltrates. No pleural effusion. LIVER: Normal size. Diffuse fatty infiltration. No masses. No dilated ducts. SPLEEN: Normal size. No focal lesions. PANCREAS: No masses. No significant calcifications. No adjacent inflammation or peripancreatic fluid collections. Pancreatic duct not dilated. GALLBLADDER: No identified stones by CT criteria. No inflammatory changes to suggest cholecystitis. ADRENAL GLANDS: No significant masses or asymmetry. RIGHT KIDNEY AND URETER: No solid masses. No significant calcifications. No hydronephrosis or hyd roureter. LEFT KIDNEY AND URETER: No solid masses. No significant calcifications. No hydronephrosis or hydr oureter. AORTA AND VESSELS: No aneurysm. No dissection. Renal arteries, SMA, celiac without stenosis. RETROPERITONEUM: No retroperitoneal adenopathy, hemorrhage or masses. BOWEL AND PERITONEAL CAVITY: Diverticuli in the descending and sigmoid colon. Focal inflammatory ginny nges in the sigmoid colon consistent with diverticulitis. Small focal fluid collection containing fl uid and gas, measuring 1.6 by 2.0 cm. Axial series 2, image 84. No free fluid or peritoneal masses. APPENDIX: Normal. PELVIS: Bilateral inguinal hernias containing fat. No mass. No free fluid. Normal bladder. ABDOMINAL WALL: No masses. No hernias. BONES: No significant or acute findings. Degenerative changes in the spine, particularly at L3-L4. OTHER: No other significant finding. IMPRESSION: 1. SIGMOID DIVERTICULITIS. THERE IS EVIDENCE OF A DEVELOPING DIVERTICULAR ABSCESS. CURRENTLY THE SI ZE AND POSITION IS NOT AMENABLE TO PERCUTANEOUS DRAINAGE. 2. FATTY INFILTRATION OF THE LIVER. 3. SMALL UMBILICAL HERNIA CONTAINING FAT AND BILATERAL INGUINAL HERNIAS CONTAINING FAT. 4. NO OTHER SIGNIFICANT OR ACUTE FINDING IN THE ABDOMEN OR PELVIS ON CT SCAN WITH IV CONTRAST. TECHNICAL DOCUMENTATION: JOB ID: [id number] Quality ID # [id number]: Final reports with documentation of one or more dose reduction techniques (e.g., Au tomated exposure control, adjustment of the mA and/or kV according to patient size, use of iterative reconstruction technique) 2010 [employer]- All Rights Reserved Reading location - IP/workstation name: [email or web address]
== END ==
LOC: RAD 10:33
PROVIDERS: ATTEND Physician Assistant
DX: K57.32 Diverticulitis of large intestine without perforation or abscess without bleeding (principal); K76.0 Fatty (change of) liver, not elsewhere classified; K42.9 Umbilical hernia without obstruction or gangrene
CPT/HCPCS: 74177

== ENCOUNTER 2018-11-20 11:17 | Observation (INO) | payer OTHER ==
[2018-11-20] MEDS ORDERED: PEG 3350/NA SULF,BICARB,CL/KCL 4000 ML PO ONE (11:37)
--- NOTE | 2018-11-20 11:37 | ER Document Report ---
ED Medical Screen (RME) - General Chief Complaint: Bloody Stools Stated Complaint: BLOOD IN STOOL Time Seen by Provider: 11/20/18 11:24 Primary Care Provider: SURESH KIRK PA [Primary Care Provider] - Follow up as needed Mode of Arrival: Ambulatory Information source: Patient Notes: 43-year-old male presented to ED for complaint lower GI bleed. He states that peter spears had a colonoscopy on November 11. He states he was still bleeding on November 12 called the doctor he told him that should stop he said it did stop bleeding on 13 November. He states this morning he woke up with bloody stools he has had 4 bloody stools today with a lot of red and dark blood with clots. Patient stated that he was supposed to be getting a prep for colonoscopy this afternoon. That is not what I have been told earlier so I did call Dr. Chinchilla myself. He states yes he wants him to have GoLYTELY over 3 hours for colon prep for him to redo the colonoscopy this afternoon. I have greeted and performed a rapid initial assessment of this patient. A comprehensive ED assessment and evaluation of the patient, analysis of test results and completion of medical decision making process will be conducted by an additional ED providers. Dictation of this chart was performed using voice recognition software; therefore, there may be some unintended grammatical errors. TRAVEL OUTSIDE OF THE [place] IN LAST 30 DAYS: No - Related Data Allergies/Adverse Reactions: No Known Allergies Allergy (Verified 11/20/18 11:21) Past Medical History - Social History Chew tobacco use (# tins/day): No Frequency of alcohol use: Social Drug Abuse: None - Past Medical History Cardiac Medical History: Reports: Hx Hypertension, Hx Pulmonary Embolism Denies: Hx Coronary Artery Disease, Hx Heart Attack Pulmonary Medical History: Denies: Hx Asthma, Hx Bronchitis, Hx COPD, Hx Pneumonia Neurological Medical History: Denies: Hx Cerebrovascular Accident, Hx Seizures Renal/ Medical History: Denies: Hx Peritoneal Dialysis GI Medical History: Reports: Hx Colonoscopy - 2016, diangosis of diverticulosis Musculoskeltal Medical History: Reports Hx Arthritis - hips, lower back Past Surgical History: Reports: Hx Testicular Surgery - vasectomy - Immunizations Hx Diphtheria, Pertussis, Tetanus Vaccination: Yes Physical Exam - Vital signs Vitals: Temp Pulse Resp BP Pulse Ox 97.6 F 86 16 144/101 H 96 07/12/19 11:20 11/20/18 11:20 11/20/18 11:20 11/20/18 11:20 11/20/18 11:20 Course - Vital Signs Vital signs: Temp Pulse Resp BP Pulse Ox 97.6 F 86 16 144/101 H 96 11/20/18 11:20 11/20/18 11:20 11/20/18 11:20 11/20/18 11:20 11/20/18 11:20 Doctor's Discharge - Discharge Referrals: SURESH KIRK PA [Primary Care Provider] - Follow up as needed
[2018-11-20 11:42] LABS: ABSOLUTE BASOPHILS # (AUTO) 0.1 10^3/uL (0.0-0.2); ABSOLUTE EOSINOPHILS # (AUTO) 0.1 10^3/uL (0.0-0.6); ABSOLUTE LYMPHOCYTES (AUTO) 2.5 10^3/uL (0.5-4.7); ABSOLUTE MONOCYTES (AUTO) 0.6 10^3/uL (0.1-1.4); ABSOLUTE NEUT (AUTO) 5.6 10^3/uL (1.7-8.2); BASOPHILS % (AUTO) 1.1 % (0-2); EOSINOPHILS % (AUTO) 1.3 % (0-6); HEMATOCRIT 47.2 % (37.9-51.0); LYMPHOCYTES % (AUTO) 28.2 % (13-45); MEAN CORPUSCULAR HEMOGLOBIN 30.5 pg (27.0-33.4); MEAN CORPUSCULAR HGB CONC 33.9 g/dL (32.0-36.0); MEAN CORPUSCULAR VOLUME 90 fl (80-97); MONOCYTES % (AUTO) 6.9 % (3-13); PLATELET COUNT 266 10^3/uL (150-450); RED BLOOD COUNT 5.24 10^6/uL (4.35-5.55); RED CELL DISTRIBUTION WIDTH 14.4 % (11.5-14.0); SEGMENTED NEUTROPHILS % (AUTO) 62.5 % (42-78); TOTAL CELLS COUNTED % (AUTO) 100 %
[2018-11-20 11:48] LABS: PARTIAL THROMBOPLASTIN TIME 30.7 SEC (23.5-35.8); PROTHROMBIN TIME 13.2 SEC (11.4-15.4)
[2018-11-20] MEDS ORDERED: NORMAL SALINE 1000 ML 1,000 ML IV ONE (11:51)
--- NOTE | 2018-11-20 11:52 | ER Document Report ---
ED GI Bleed / Rectal Pain - General Chief Complaint: Bloody Stools Stated Complaint: BLOOD IN STOOL Time Seen by Provider: 11/20/18 11:24 Primary Care Provider: SURESH KIRK PA [Primary Care Provider] - Follow up as needed Mode of Arrival: Ambulatory Information source: Patient TRAVEL OUTSIDE OF THE [place] IN LAST 30 DAYS: No - HPI Patient complains to provider of: Dark red bld from rectum - pt. had colonoscopy earlier this month. Has some post-procedure bleeding but stopped until earlier this am when bleeding resumed. Pt was told to come here per Dr. Chinchilla and start prep in ED and he will see this afternoon here for colonoscopy. - Related Data Allergies/Adverse Reactions: No Known Allergies Allergy (Verified 11/20/18 11:21) Past Medical History - General Information source: Patient - Social History Smoking Status: Never Smoker Chew tobacco use (# tins/day): No Frequency of alcohol use: Social Drug Abuse: None Family History: Reviewed & Not Pertinent Patient has suicidal ideation: No Patient has homicidal ideation: No - Past Medical History Cardiac Medical History: Reports: Hx Hypertension, Hx Pulmonary Embolism Denies: Hx Coronary Artery Disease, Hx Heart Attack Pulmonary Medical History: Denies: Hx Asthma, Hx Bronchitis, Hx COPD, Hx Pneumonia Neurological Medical History: Denies: Hx Cerebrovascular Accident, Hx Seizures Renal/ Medical History: Denies: Hx Peritoneal Dialysis GI Medical History: Reports: Hx Colonoscopy - 2016, diangosis of diverticulosis Musculoskeletal Medical History: Reports Hx Arthritis - hips, lower back Past Surgical History: Reports: Hx Testicular Surgery - vasectomy - Immunizations Hx Diphtheria, Pertussis, Tetanus Vaccination: Yes Review of Systems - Review of Systems Constitutional: No symptoms reported EENT: No symptoms reported Cardiovascular: No symptoms reported Gastrointestinal: See HPI, Rectal bleeding Musculoskeletal: No symptoms reported Neurological/Psychological: No symptoms reported -: Yes All other systems reviewed and negative Physical Exam - Vital signs Vitals: Temp Pulse Resp BP Pulse Ox 97.6 F 86 16 144/101 H 96 11/20/18 11:20 11/20/18 11:20 11/20/18 11:20 11/20/18 11:20 11/20/18 11:20 - General General appearance: Appears well In distress: None - Respiratory Respiratory status: No respiratory distress Breath sounds: Normal - Cardiovascular Rhythm: Regular Heart sounds: Normal auscultation - Abdominal Inspection: Normal Tenderness: Nontender - Rectal Stool: Bloody Course - Re-evaluation Re-evalutation: 11/20/18 14:01 Pt. continues to drink bowel prep -- continues to have grossly bloody stool. I will call Dr. Chinchilla for updated plan. - Vital Signs Vital signs: Temp Pulse Resp BP Pulse Ox 97.6 F 86 18 129/96 H 96 11/20/18 11:20 11/20/18 11:20 11/20/18 12:01 11/20/18 12:01 11/20/18 12:01 - Laboratory Result Diagrams: 11/20/18 11:30 11/20/18 11:30 Laboratory results interpreted by me: 11/20/18 11/20/18 11:30 11:30 RDW 14.4 H Carbon Dioxide 21 L Glucose 111 H - Consults lien Chinchilla Time consulted: 14:02 - pt. will need to be admitted to hospitalist post procedure Consulted provider: will come to ER Discharge - Discharge Clinical Impression: GI bleed Qualifiers: GI bleed type/associated pathology: unspecified gastrointestinal hemorrhage type Qualified Code(s): K92.2 - Gastrointestinal hemorrhage, unspecified Condition: Stable Disposition: ADMITTED OBSERVATION Admitting Provider: Kunal (Hospitalist) Unit Admitted: Telemetry Referrals: SURESH KIRK PA [Primary Care Provider] - Follow up as needed
[2018-11-20 12:07] LABS: ALANINE AMINOTRANSFERASE 36 U/L (21-72); ALBUMIN 4.5 g/dL (3.5-5.0); ALKALINE PHOSPHATASE 86 U/L (38-126); ANION GAP 12 (5-19); ASPARTATE AMINO TRANSFERASE 40 U/L (17-59); BILIRUBIN,DIRECT 0.3 mg/dL (0.0-0.4); BILIRUBIN,TOTAL 0.6 mg/dL (0.2-1.3); BLOOD UREA NITROGEN 16 mg/dL (7-20); CALCIUM 9.4 mg/dL (8.4-10.2); CARBON DIOXIDE 21 mmol/L (22-30); CHLORIDE 105 mmol/L (98-107); GLUCOSE 111 mg/dL (75-110); SODIUM 137.5 mmol/L (137-145); TOTAL PROTEIN 7.9 g/dL (6.3-8.2)
[2018-11-20 14:02] LABS: APPEARANCE,URINE CLEAR; BILIRUBIN,URINE NEGATIVE (NEGATIVE); COLOR,URINE YELLOW; GLUCOSE, URINE NEGATIVE (NEGATIVE); KETONES,URINE NEGATIVE (NEGATIVE); LEUKOCYTE ESTERASE,URINE NEGATIVE (NEGATIVE); NITRITE,URINE NEGATIVE (NEGATIVE); PROTEIN,URINE NEGATIVE (NEGATIVE); URINE SPECIFIC GRAVITY 1.023; UROBILINOGEN,URINE NEGATIVE mg/dL (<2.0)
[2018-11-20] MEDS ORDERED: ONDANSETRON HCL INJ/PF 4 MG/2 ML SDV IV PRN (14:21)
[2018-11-20] MEDS ORDERED: ACETAMINOPHEN 325 MG TABLET PO PRN (14:21)
--- NOTE | 2018-11-20 15:10 | PDOC H&P ---
History of Present Illness Admission Date/PCP: 11/20/18 14:27 DELFIN MARQUEZ Patient complains of: Patient came in with a blood per rectum History of Present Illness: JUAN C LEVY is a 43 year old male with history of pulmonary embolism, PTSD, chronic back pain came to the emergency room with complaints of dark-colored blood per rectum of 2 days duration he went to Dr. Chinchilla's office he was given a bowel prep and advised to come to the emergency room for further evaluation in the emergency room hemoglobin is 16 he is still passing dark-colored blood patient is taking Xarelto for pulmonary embolism which was diagnosed 3 years ago. Patient took last dose of Xarelto yesterday morning. To the patient Dr. KHALIL aware that he is taking Xarelto at home during the previous colonoscopy he was on Lovenox injections as a bridge. As per the patient colonoscopy was done as an outpatient 9 polyps were removed at the time. Past Medical History Cardiac Medical History: Reports: Hypertension, Pulmonary Embolism Denies: Coronary Artery Disease, Myocardial Infarction Pulmonary Medical History: Denies: Asthma, Bronchitis, Chronic Obstructive Pulmonary Disease (COPD), Pneumonia Neurological Medical History: Denies: Seizures Musculoskeltal Medical History: Reports: Arthritis - hips, lower back Hematology: Denies: Anemia Past Surgical History Past Surgical History: Reports: None Social History Smoking Status: Never Smoker Frequency of Alcohol Use: Occasional Family History Family History: Reviewed & Not Pertinent Parental Family History Reviewed: Yes - Family history of colon cancer Children Family History Reviewed: Yes Sibling(s) Family History Reviewed.: Yes Medication/Allergy Home Medications: Trazodone HCl 150 mg PO QHS 01/01/14 Alprazolam [Xanax 0.5 mg Tablet] 0.25 mg PO DAILY 08/24/14 Cetirizine HCl [Allergy Relief] 10 mg PO ASDIR PRN 08/24/14 Tramadol HCl 50 mg PO DAILY 08/24/14 Ketorolac Tromethamine [Acular] 1 drop OS TID #5 ml 10/08/15 Amox Tr/Potassium Clavulanate [Augmentin 875-125 Tablet] 1 tab PO BID 10 Days tablet 09/23/16 Rivaroxaban [Xarelto] 1 each PO ASDIR #1 tab.ds.pk 11/20/16 Ciprofloxacin HCl [Cipro 750 mg Tablet] 750 mg PO BID #14 tablet 08/17/18 Hydrocodone/Acetaminophen [[place] 5-325 mg Tablet] 1 tab PO Q4 PRN #12 tablet 08/17/18 Metronidazole [Flagyl 500 mg Tablet] 500 mg PO QID #28 tablet 08/17/18 Allergies/Adverse Reactions: No Known Allergies Allergy (Verified 11/20/18 11:21) Review of Systems Constitutional: ABSENT: fever(s), headache(s), night sweats, weakness Eyes: ABSENT: visual disturbances Ears: ABSENT: hearing changes Nose, Mouth, and Throat: ABSENT: sore throat Respiratory: ABSENT: dyspnea, hemoptysis Gastrointestinal: PRESENT: other - Dark-colored blood in the stool Integumentary: ABSENT: rash, wounds Neurological: ABSENT: abnormal gait, abnormal speech, confusion, dizziness, focal weakness, syncope Psychiatric: ABSENT: anxiety, depression, homidical ideation, suicidal ideation Physical Exam Vital Signs: Temp Pulse Resp BP Pulse Ox 97.6 F 86 18 129/96 H 96 11/20/18 11:20 11/20/18 11:20 11/20/18 12:01 11/20/18 12:01 11/20/18 12:01 Intake & Output 11/19/18 11/20/18 11/21/18 06:59 06:59 06:59 Intake Total 1000 Balance 1000 Weight 99.3 kg General appearance: PRESENT: no acute distress Head exam: PRESENT: atraumatic Eye exam: PRESENT: PERRLA Mouth exam: PRESENT: moist, tongue midline Teeth exam: PRESENT: poor dentation Neck exam: ABSENT: carotid bruit, JVD, lymphadenopathy, thyromegaly Respiratory exam: PRESENT: clear to auscultation [place]. ABSENT: rales, rhonchi, wheezes Cardiovascular exam: PRESENT: RRR. ABSENT: diastolic murmur, rubs, systolic murmur GI/Abdominal exam: PRESENT: ascites Rectal exam: PRESENT: deferred Extremities exam: PRESENT: full ROM. ABSENT: calf tenderness, clubbing, pedal edema Neurological exam: PRESENT: alert, awake, oriented to person, oriented to place, oriented to time, oriented to situation, CN II-XII grossly intact. ABSENT: motor sensory deficit Psychiatric exam: PRESENT: appropriate affect, normal mood. ABSENT: homicidal ideation, suicidal ideation Results Laboratory Results: 11/20/18 11:30 11/20/18 11:30 11/20/18 11/20/18 11/20/18 11:30 11:30 11:30 WBC 9.0 RBC 5.24 Hgb 16.0 Hct 47.2 MCV 90 MCH 30.5 MCHC 33.9 RDW 14.4 H Plt Count 266 Seg Neutrophils % 62.5 Lymphocytes % 28.2 Monocytes % 6.9 Eosinophils % 1.3 Basophils % 1.1 Absolute Neutrophils 5.6 Absolute Lymphocytes 2.5 Absolute Monocytes 0.6 Absolute Eosinophils 0.1 Absolute Basophils 0.1 Sodium 137.5 Potassium 5.0 Chloride 105 Carbon Dioxide 21 L Anion Gap 12 BUN 16 Creatinine 0.95 Est GFR ( Amer) > 60 Est GFR (Non-Af Amer) > 60 Glucose 111 H Calcium 9.4 Total Bilirubin 0.6 AST 40 ALT 36 Alkaline Phosphatase 86 Total Protein 7.9 Albumin 4.5 Lipase 66.0 Urine Color Urine Appearance Urine pH Ur Specific [place] Urine Protein Urine Glucose (UA) Urine Ketones Urine Blood Urine Nitrite Ur Leukocyte Esterase Urine WBC (Auto) Urine RBC (Auto) Blood Type O POSITIVE Antibody Screen NEGATIVE 11/20/18 13:45 WBC RBC Hgb Hct MCV MCH MCHC RDW Plt Count Seg Neutrophils % Lymphocytes % Monocytes % Eosinophils % Basophils % Absolute Neutrophils Absolute Lymphocytes Absolute Monocytes Absolute Eosinophils Absolute Basophils Sodium Potassium Chloride Carbon Dioxide Anion Gap BUN Creatinine Est GFR ( Amer) Est GFR (Non-Af Amer) Glucose Calcium Total Bilirubin AST ALT Alkaline Phosphatase Total Protein Albumin Lipase Urine Color YELLOW Urine Appearance CLEAR Urine pH 5.0 Ur Specific [place] 1.023 Urine Protein NEGATIVE Urine Glucose (UA) NEGATIVE Urine Ketones NEGATIVE Urine Blood NEGATIVE Urine Nitrite NEGATIVE Ur Leukocyte Esterase NEGATIVE Urine WBC (Auto) 0 Urine RBC (Auto) 0 Blood Type Antibody Screen Assessment and Plan - Diagnosis (1) GI bleed Qualifiers: GI bleed type/associated pathology: unspecified gastrointestinal hemorrhage type Qualified Code(s): K92.2 - Gastrointestinal hemorrhage, unspecified Is this a current diagnosis for this admission?: Yes Plan: 11/20/2018-patient came to the emergency room with lower GI bleed he was referred by Dr. Chinchilla patient is going to go to the medical floor. He is going to be n.p.o. probably go to colonoscopy today patient told me he took Xarelto yesterday morning. Hemoglobin 16. GI prophylaxis was initiated with Protonix 40 mg IV twice daily and DVT prophylaxis with SCDs. Xarelto on hold. (2) Pulmonary embolism Is this a current diagnosis for this admission?: No Plan: 11/20/2018-patient has history of pulmonary embolism on Xarelto at home. He came in with GI bleed to Xarelto will be on hold. - Time Time Spent with patient: 25-34 minutes Medications reviewed and adjusted accordingly: Yes Anticipated discharge: Home
[2018-11-20 15:16] LABS: PROTHROMBIN TIME 13.2 SEC (11.4-15.4)
[2018-11-20] MEDS ORDERED: DIPHENHYDRAMINE HCL 50 MG/ML VIAL ONE (16:22)
[2018-11-20] MEDS ORDERED: ONDANSETRON HCL INJ/PF 4 MG/2 ML SDV ONE (16:22)
[2018-11-20] MEDS ORDERED: FLUMAZENIL INJ 0.5 MG/5 ML VIAL ONE (16:23)
[2018-11-20] MEDS ORDERED: GLUCAGON,HUMAN RECOMB 1 MG INJ ONE (16:23)
[2018-11-20] MEDS ORDERED: EPINEPHRINE INJ 1 MG/10 ML DISP.SYRIN ONE (16:23)
[2018-11-20] MEDS ORDERED: NALOXONE HCL INJ/PF 0.4 MG/1 ML SDV ONE (16:23)
--- NOTE | 2018-11-20 17:06 | RADIOLOGY REPORT (SQ) ---
EXAM DESCRIPTION: CHEST SINGLE VIEW COMPLETED DATE/TIME: 11/20/2018 4:02 pm REASON FOR STUDY: shortness of breath COMPARISON: 09/23/2016 TECHNIQUE: Single frontal radiographic view of the chest acquired. NUMBER OF VIEWS: One view. LIMITATIONS: None. FINDINGS: LUNGS AND PLEURA: No pneumothorax. No consolidation or pleural effusion. MEDIASTINUM AND HILAR STRUCTURES: Stable. HEART AND VASCULAR STRUCTURES: Stable. BONES: No acute findings. HARDWARE: None in the chest. OTHER: No other significant finding. IMPRESSION: NO ACUTE FINDINGS. TECHNICAL DOCUMENTATION: JOB ID: [id number] [id number] 2010 [id number]- All Rights Reserved Reading location - IP/workstation name: [employer]
[2018-11-20] MEDS: MIDAZOLAM 2 MG/2 ML INJ ONE ×3 (17:55→18:08)
[2018-11-20] MEDS: FENTANYL CITRATE INJ/PF 100 MCG/2 ML AMPUL ONE ×4 (17:57→18:24)
--- NOTE | 2018-11-20 18:44 | PDOC CONSULTATION ---
Consultation Consult Date: 11/20/18 Provider Consulted: RITA POLLACK History of Present Illness Admission Date/PCP: 11/20/18 14:27 DELFIN MARQUEZ History of Present Illness: JUAN C LEVY is a 43 year old male patient who was admitted directly to the emergency room with acute rectal bleeding. He had a colonoscopy 8 days ago with removal of multiple colon polyps. The largest polyp was in the cecum and this was endoclipped. He took low-dose Lovenox for 2 days after his colonoscopy and then resumed 10 mg of Xarelto for 5 days. He went back to his usual 20 mg Xarelto 3 days ago. He had 3 episodes of large rectal bleeding at home prior to coming to the emergency room. He continues to have bright red blood in the hospital while doing the bowel prep. He denies abdominal pain. His vital signs were normal at the emergency room and his admission hemoglobin was 16 Past Medical History Cardiac Medical History: Reports: Hypertension, Pulmonary Embolism Denies: Coronary Artery Disease, Myocardial Infarction Pulmonary Medical History: Denies: Asthma, Bronchitis, Chronic Obstructive Pulmonary Disease (COPD), Pneumonia Neurological Medical History: Denies: Seizures Musculoskeltal Medical History: Reports: Arthritis - hips, lower back Hematology: Denies: Anemia Past Surgical History Past Surgical History: Reports: None Social History Smoking Status: Never Smoker Frequency of Alcohol Use: Occasional - Advance Directive Resuscitation Status: Full Code Family History Family History: Reviewed & Not Pertinent Parental Family History Reviewed: No Children Family History Reviewed: NA Sibling(s) Family History Reviewed.: NA Medication/Allergy Home Medications: Trazodone HCl 150 mg PO QHS 01/01/14 Tramadol HCl 50 mg PO Q12HP PRN 08/24/14 Rivaroxaban [Xarelto 10 mg Tablet] mg PO DAILY 11/20/18 Allergies/Adverse Reactions: No Known Allergies Allergy (Verified 11/20/18 11:21) Review of Systems All systems: reviewed and no additional remarkable complaints except as stated Physical Exam Vital Signs: Temp Pulse Resp BP Pulse Ox 97.6 F 77 25 H 134/88 H 100 11/20/18 11:20 11/20/18 18:20 11/20/18 18:20 11/20/18 18:20 11/20/18 18:20 Intake & Output 07/11/19 07/12/19 07/13/19 06:59 06:59 06:59 Intake Total 1000 Balance 1000 Weight 99.3 kg Exam: General: Patient is alert and looks well. HEENT: There is no pallor or jaundice. PERRLA. Oropharynx normal Respiratory: No chest deformity. No respiratory distress. Chest wall palpitation was unremarkable. Breath sounds were normal Cardiovascular: Heart sounds 1 and 2 normal with no murmurs. Abdominal: Not distended. Soft and nontender. Liver and spleen not palpable. No ascites demonstrated. Bowel sounds active. Rectal examination was deferred. Extremities: No edema Neurological: Alert and oriented x4. Grossly nonfocal. Normal speech Skin: No significant rash Psychological: Normal affect Results Laboratory Results: 11/20/18 11:30 11/20/18 11:30 11/20/18 11/20/18 11/20/18 11:30 11:30 11:30 WBC 9.0 RBC 5.24 Hgb 16.0 Hct 47.2 MCV 90 MCH 30.5 MCHC 33.9 RDW 14.4 H Plt Count 266 Seg Neutrophils % 62.5 Lymphocytes % 28.2 Monocytes % 6.9 Eosinophils % 1.3 Basophils % 1.1 Absolute Neutrophils 5.6 Absolute Lymphocytes 2.5 Absolute Monocytes 0.6 Absolute Eosinophils 0.1 Absolute Basophils 0.1 Sodium 137.5 Potassium 5.0 Chloride 105 Carbon Dioxide 21 L Anion Gap 12 BUN 16 Creatinine 0.95 Est GFR ( Amer) > 60 Est GFR (Non-Af Amer) > 60 Glucose 111 H Calcium 9.4 Total Bilirubin 0.6 AST 40 ALT 36 Alkaline Phosphatase 86 Total Protein 7.9 Albumin 4.5 Lipase 66.0 Urine Color Urine Appearance Urine pH Ur Specific [place] Urine Protein Urine Glucose (UA) Urine Ketones Urine Blood Urine Nitrite Ur Leukocyte Esterase Urine WBC (Auto) Urine RBC (Auto) Blood Type O POSITIVE Antibody Screen NEGATIVE 11/20/18 13:45 WBC RBC Hgb Hct MCV MCH MCHC RDW Plt Count Seg Neutrophils % Lymphocytes % Monocytes % Eosinophils % Basophils % Absolute Neutrophils Absolute Lymphocytes Absolute Monocytes Absolute Eosinophils Absolute Basophils Sodium Potassium Chloride Carbon Dioxide Anion Gap BUN Creatinine Est GFR ( Amer) Est GFR (Non-Af Amer) Glucose Calcium Total Bilirubin AST ALT Alkaline Phosphatase Total Protein Albumin Lipase Urine Color YELLOW Urine Appearance CLEAR Urine pH 5.0 Ur Specific [place] 1.023 Urine Protein NEGATIVE Urine Glucose (UA) NEGATIVE Urine Ketones NEGATIVE Urine Blood NEGATIVE Urine Nitrite NEGATIVE Ur Leukocyte Esterase NEGATIVE Urine WBC (Auto) 0 Urine RBC (Auto) 0 Blood Type Antibody Screen Impressions: Chest X-Ray 11/20/18 14:24 IMPRESSION: NO ACUTE FINDINGS. Assessment & Plan - Diagnosis (1) Post-polypectomy bleeding Is this a current diagnosis for this admission?: Yes Plan: He is bleeding from one or more of his polypectomy sites. He did well on low- dose Lovenox and 10 mg of Xarelto but resumed 20 mg a few days ago. He will undergo an urgent colonoscopy with bleeding control. We will need to hold his Xarelto for a few days and then resume with low-dose for 2 to 3 weeks (3) GI bleed Qualifiers: GI bleed type/associated pathology: unspecified gastrointestinal hemorrhage type Qualified Code(s): K92.2 - Gastrointestinal hemorrhage, unspecified Is this a current diagnosis for this admission?: Yes
--- NOTE | 2018-11-20 18:47 | Operative Report ---
Operative Report DATE OF SURGERY: 11/20/18 Operative Report: Pre-op diagnosis: Post polypectomy rectal bleeding Post-op diagnosis: 1. Bleeding cecal polypectomy site 2. Pancolonic diverticulosis Surgery: Colonoscopy with epinephrine injection and Endo Clip placement Medications: Versed mg, Fentanyl mcg IV push Tissue removed: Procedure: After informed consent obtained from patient, conscious sedation was achieved. A digital rectal examination was performed and this was unremarkable. The colonoscope was inserted into the rectum and advanced to the cecum. The appendiceal orifice and the terminal ileum were both identified. The mucosa was examined into details as the colonoscope was slowly pulled out of the patient. Patient tolerated the procedure well. Findings Cecum: A 1 cm ulcer was noted in the cecum with active bleeding. There was a previously placed Endo Clip. The base of the ulcer was injected with epinephrine 1 in 10,003 more endoclips were applied. There was no active bleeding at the end of the procedure. A few other polypectomy ulcers were noted in the colon with clean white bases. Ascending colon: Few diverticuli Transverse colon: Normal Descending colon: Few diverticuli Sigmoid colon: Multiple diverticuli Rectum: Normal except for internal hemorrhoids Plan: Monitor H&H. Asacol 800 mg twice a day for 1 month. Resume Xarelto at 10 mg daily on 11/24/2018 OPERATION: .
[2018-11-20] MEDS: PANTOPRAZOLE SODIUM 40 MG VIAL IV SCH (21:39)
[2018-11-21 00:17] VITALS: BP 105/57
[2018-11-21 06:11] LABS: ABSOLUTE BASOPHILS # (AUTO) 0.1 10^3/uL (0.0-0.2); ABSOLUTE EOSINOPHILS # (AUTO) 0.2 10^3/uL (0.0-0.6); ABSOLUTE LYMPHOCYTES (AUTO) 2.7 10^3/uL (0.5-4.7); ABSOLUTE MONOCYTES (AUTO) 0.5 10^3/uL (0.1-1.4); ABSOLUTE NEUT (AUTO) 3.8 10^3/uL (1.7-8.2); BASOPHILS % (AUTO) 0.9 % (0-2); EOSINOPHILS % (AUTO) 2.7 % (0-6); HEMATOCRIT 37.8 % (37.9-51.0); LYMPHOCYTES % (AUTO) 37.3 % (13-45); MEAN CORPUSCULAR HEMOGLOBIN 30.6 pg (27.0-33.4); MEAN CORPUSCULAR HGB CONC 33.9 g/dL (32.0-36.0); MEAN CORPUSCULAR VOLUME 90 fl (80-97); MONOCYTES % (AUTO) 6.4 % (3-13); PLATELET COUNT 194 10^3/uL (150-450); RED BLOOD COUNT 4.17 10^6/uL (4.35-5.55); RED CELL DISTRIBUTION WIDTH 14.5 % (11.5-14.0); SEGMENTED NEUTROPHILS % (AUTO) 52.7 % (42-78); TOTAL CELLS COUNTED % (AUTO) 100 %; WHITE BLOOD COUNT 7.1 10^3/uL (4.0-10.5)
[2018-11-21 06:15] LABS: HEMOGLOBIN 12.8 g/dL (13.5-17.0)
[2018-11-21 06:31] LABS: ALANINE AMINOTRANSFERASE 30 U/L (21-72); ALBUMIN 3.1 g/dL (3.5-5.0); ALKALINE PHOSPHATASE 48 U/L (38-126); ANION GAP 6 (5-19); ASPARTATE AMINO TRANSFERASE 30 U/L (17-59); BILIRUBIN,DIRECT 0.2 mg/dL (0.0-0.4); BILIRUBIN,TOTAL 0.7 mg/dL (0.2-1.3); BLOOD UREA NITROGEN 12 mg/dL (7-20); CALCIUM 8.1 mg/dL (8.4-10.2); CARBON DIOXIDE 24 mmol/L (22-30); CHLORIDE 106 mmol/L (98-107); GLUCOSE 90 mg/dL (75-110); POTASSIUM 4.2 mmol/L (3.6-5.0); SODIUM 135.8 mmol/L (137-145); TOTAL PROTEIN 5.7 g/dL (6.3-8.2)
[2018-11-21] MEDS ORDERED: MESALAMINE 400 MG CAPSULE.DR PO SCH (10:00)
[2018-11-21] MEDS: PANTOPRAZOLE SODIUM 40 MG VIAL IV SCH (10:15)
--- NOTE | 2018-11-21 10:49 | PDOC DISCHARGE SUMMARY ---
General - Admit/Disc Date/PCP Admission Date/Primary Care Provider: 11/20/18 14:27 DELFIN MARQUEZ Discharge Date: 11/21/18 - Discharge Diagnosis (1) GI bleed Is this a current diagnosis for this admission?: Yes Summary: 43 year old male with history of pulmonary embolism, PTSD, chronic back pain came to the emergency room with complaints of dark-colored blood per rectum of 2 days duration he went to Dr. Chinchilla's office he was given a bowel prep and advised to come to the emergency room for further evaluation in the emergency room hemoglobin is 16 he is still passing dark-colored blood patient is taking Xarelto for pulmonary embolism which was diagnosed 3 years ago. Patient took last dose of Xarelto yesterday morning. To the patient Dr. KHALIL aware that he is taking Xarelto at home during the previous colonoscopy he was on Lovenox injections as a bridge. As per the patient colonoscopy was done as an outpatient 9 polyps were removed at the time. [id number]-old male admitted with GI bleed status post colonoscopy was done found to have a small bleeding ulcer in the cecum cauterized by Dr. ROLON. Patient still have minimal amount of blood in the stool which was expected. Hemoglobin is 12.[address] KHALIL he wants me to discharge him on Asacol 800 mg p.o. twice daily and restart Xarelto on 16th after 10 mg p.o. daily for 3 weeks after that he will go back on 20 mg p.o. daily regular dose. Patient agreed with the discharge plan is going home today. (2) Pulmonary embolism Is this a current diagnosis for this admission?: No - Additional Information Resuscitation Status: Full Code Discharge Activity: Activity As Tolerated Prescriptions: Mesalamine [Asacol Sr 400 mg Capsule] 800 mg PO BID #60 capsule. Rivaroxaban [Xarelto 10 mg Tablet] 10 mg PO 21 #30 tablet Home Medications: Trazodone HCl 150 mg PO QHS 01/01/14 Mesalamine [Asacol Sr 400 mg Capsule] 800 mg PO BID #60 capsule. 11/21/18 Rivaroxaban [Xarelto 10 mg Tablet] 10 mg PO 21 #30 tablet 11/21/18 History of Present Illness History of Present Illness: ELIOT CAM is a 43 year old male with history of pulmonary embolism, PTSD, chronic back pain came to the emergency room with complaints of dark-colored blood per rectum of 2 days duration he went to Dr. Chinchilla's office he was given a bowel prep and advised to come to the emergency room for further evaluation in the emergency room hemoglobin is 16 he is still passing dark-colored blood patient is taking Xarelto for pulmonary embolism which was diagnosed 3 years ago. Patient took last dose of Xarelto yesterday morning. To the patient Dr. KHALIL aware that he is taking Xarelto at home during the previous colonoscopy he was on Lovenox injections as a bridge. As per the patient colonoscopy was done as an outpatient 9 polyps were removed at the time. Physical Exam Vital Signs: Temp Pulse Resp BP Pulse Ox 97.4 F 68 15 105/57 L 95 11/21/18 00:16 11/21/18 00:16 11/21/18 00:16 11/21/18 00:16 11/21/18 00:16 Intake & Output 11/20/18 11/21/18 11/22/18 06:59 06:59 06:59 Intake Total 2600 Balance 2600 Weight 99.2 kg General appearance: PRESENT: no acute distress Head exam: PRESENT: atraumatic Eye exam: PRESENT: PERRLA Mouth exam: PRESENT: moist, tongue midline Teeth exam: PRESENT: poor dentation Neck exam: ABSENT: carotid bruit, JVD, lymphadenopathy, thyromegaly Respiratory exam: PRESENT: decreased breath sounds Cardiovascular exam: PRESENT: RRR. ABSENT: diastolic murmur, rubs, systolic murmur GI/Abdominal exam: PRESENT: normal bowel sounds, soft. ABSENT: distended, gua rding, mass, organolmegaly, rebound, tenderness Rectal exam: PRESENT: deferred Extremities exam: PRESENT: full ROM. ABSENT: calf tenderness, clubbing, pedal edema Neurological exam: PRESENT: alert, awake, oriented to person, oriented to place, oriented to time, oriented to situation, CN II-XII grossly intact. ABSENT: chilo r sensory deficit Psychiatric exam: PRESENT: appropriate affect, normal mood. ABSENT: homicidal ideation, suicidal ideation Results Laboratory Results: 11/21/18 05:22 11/21/18 05:22 11/20/18 11/20/18 11/20/18 11:30 11:30 11:30 WBC 9.0 RBC 5.24 Hgb 16.0 Hct 47.2 MCV 90 MCH 30.5 MCHC 33.9 RDW 14.4 H Plt Count 266 Seg Neutrophils % 62.5 Lymphocytes % 28.2 Monocytes % 6.9 Eosinophils % 1.3 Basophils % 1.1 Absolute Neutrophils 5.6 Absolute Lymphocytes 2.5 Absolute Monocytes 0.6 Absolute Eosinophils 0.1 Absolute Basophils 0.1 Sodium 137.5 Potassium 5.0 Chloride 105 Carbon Dioxide 21 L Anion Gap 12 BUN 16 Creatinine 0.95 Est GFR ( Amer) > 60 Est GFR (Non-Af Amer) > 60 Glucose 111 H Calcium 9.4 Magnesium Total Bilirubin 0.6 AST 40 ALT 36 Alkaline Phosphatase 86 Total Protein 7.9 Albumin 4.5 Lipase 66.0 Urine Color Urine Appearance Urine pH Ur Specific [place] Urine Protein Urine Glucose (UA) Urine Ketones Urine Blood Urine Nitrite Ur Leukocyte Esterase Urine WBC (Auto) Urine RBC (Auto) Blood Type O POSITIVE Antibody Screen NEGATIVE 11/20/18 11/21/18 11/21/18 13:45 05:22 05:22 WBC 7.1 RBC 4.17 L Hgb 12.8 L D Hct 37.8 L MCV 90 MCH 30.6 MCHC 33.9 RDW 14.5 H Plt Count 194 Seg Neutrophils % 52.7 Lymphocytes % 37.3 Monocytes % 6.4 Eosinophils % 2.7 Basophils % 0.9 Absolute Neutrophils 3.8 Absolute Lymphocytes 2.7 Absolute Monocytes 0.5 Absolute Eosinophils 0.2 Absolute Basophils 0.1 Sodium 135.8 L Potassium 4.2 Chloride 106 Carbon Dioxide 24 Anion Gap 6 BUN 12 Creatinine 0.92 Est GFR ( Amer) > 60 Est GFR (Non-Af Amer) > 60 Glucose 90 Calcium 8.1 L Magnesium 2.0 Total Bilirubin 0.7 AST 30 ALT 30 Alkaline Phosphatase 48 Total Protein 5.7 L Albumin 3.1 L Lipase Urine Color YELLOW Urine Appearance CLEAR Urine pH 5.0 Ur Specific [place] 1.023 Urine Protein NEGATIVE Urine Glucose (UA) NEGATIVE Urine Ketones NEGATIVE Urine Blood NEGATIVE Urine Nitrite NEGATIVE Ur Leukocyte Esterase NEGATIVE Urine WBC (Auto) 0 Urine RBC (Auto) 0 Blood Type Antibody Screen Impressions: Chest X-Ray 11/20/18 14:24 IMPRESSION: NO ACUTE FINDINGS. Qualifiers - * PATIENT BEING DISCHARGED WITH ANY OF THE FOLLOWING DIAGNOSIS: No VTE patient discharged on overlapping Therapy?: No Acute Heart Failure - Is this a Heart Failure Patient?: No
[2018-11-21] MEDS ORDERED: TRAZODONE HCL 50 MG TABLET PO SCH (22:00)
== END 2018-11-21 11:56 | disposition home or self-care (01) ==
LOC: ER 11:17 → EH 14:27 → 4S 19:01
PROVIDERS: ADMIT Internal Medicine; ATTEND Internal Medicine
PROC: 0W3P8ZZ Control Bleeding in Gastrointestinal Tract, Via Natural or Artificial Opening Endoscopic (ICD-10-PCS; principal; 2018-11-20 16:00)
DX: K92.2 Gastrointestinal hemorrhage, unspecified (principal); K63.3 Ulcer of intestine; K57.30 Diverticulosis of large intestine without perforation or abscess without bleeding; K91.840 Postprocedural hemorrhage of a digestive system organ or structure following a digestive system procedure; Y83.8 Other surgical procedures as the cause of abnormal reaction of the patient, or of later complication, without mention of misadventure at the time of the procedure; K64.8 Other hemorrhoids; Z86.711 Personal history of pulmonary embolism; Z80.0 Family history of malignant neoplasm of digestive organs
CPT/HCPCS: 99285; 96360; 45381; 86900; 86901; 36415 ×2; 86850; 83690; 83735; 85025 ×2; 85610; 85730; 80053 ×2; 81001; 71045; G0378 ×3; J2250; J0171; J3010; S0164; J3490 ×2; J7030; J1200; J1610; J2310; J2405

== ENCOUNTER → 2019-07-23 | Outpatient (CLI) | payer OTHER ==
[2019-07-23 17:36] LABS: ABSOLUTE BASOPHILS # (AUTO) 0.1 10^3/uL (0.0-0.2); ABSOLUTE EOSINOPHILS # (AUTO) 0.1 10^3/uL (0.0-0.6); ABSOLUTE LYMPHOCYTES (AUTO) 3.1 10^3/uL (0.5-4.7); ABSOLUTE MONOCYTES (AUTO) 0.8 10^3/uL (0.1-1.4); BASOPHILS % (AUTO) 0.8 % (0-2); EOSINOPHILS % (AUTO) 1.1 % (0-6); HEMATOCRIT 52.4 % (37.9-51.0); HEMOGLOBIN 18.8 g/dL (13.5-17.0); LYMPHOCYTES % (AUTO) 31.1 % (13-45); MEAN CORPUSCULAR HEMOGLOBIN 32.8 pg (27.0-33.4); MEAN CORPUSCULAR HGB CONC 35.8 g/dL (32.0-36.0); MEAN CORPUSCULAR VOLUME 92 fl (80-97); PLATELET COUNT 233 10^3/uL (150-450); RED BLOOD COUNT 5.73 10^6/uL (4.35-5.55); RED CELL DISTRIBUTION WIDTH 13.8 % (11.5-14.0); TOTAL CELLS COUNTED % (AUTO) 100 %; WHITE BLOOD COUNT 10.1 10^3/uL (4.0-10.5)
[2019-07-23 17:59] LABS: ALKALINE PHOSPHATASE 82 U/L (38-126); ANION GAP 16 (5-19); ASPARTATE AMINO TRANSFERASE 70 U/L (17-59); BILIRUBIN,DIRECT 0.4 mg/dL (0.0-0.4); BILIRUBIN,TOTAL 0.7 mg/dL (0.2-1.3); BLOOD UREA NITROGEN 13 mg/dL (7-20); CALCIUM 10.1 mg/dL (8.4-10.2); CARBON DIOXIDE 19 mmol/L (22-30); CHLORIDE 103 mmol/L (98-107); GLUCOSE 84 mg/dL (75-110); POTASSIUM 4.4 mmol/L (3.6-5.0); TOTAL PROTEIN 8.6 g/dL (6.3-8.2)
== END ==
LOC: OD 16:52
PROVIDERS: ATTEND Physician Assistant
DX: K57.92 Diverticulitis of intestine, part unspecified, without perforation or abscess without bleeding (principal)
CPT/HCPCS: 36415; 80053; 83690; 85025